=== PATIENT | male | born 1960 | race Caucasian/White ===

== ENCOUNTER → 2017-02-10 | Outpatient (CLI) | payer BC | END | disposition disaster alternative care site (69) | LOC: GRAD 10:21 | DX: M25.512 Pain in left shoulder (principal); M75.102 Unspecified rotator cuff tear or rupture of left shoulder, not specified as traumatic; M19.012 Primary osteoarthritis, left shoulder; M67.912 Unspecified disorder of synovium and tendon, left shoulder ==